=== PATIENT | female | born 1965 | race African-American/Black ===

== ENCOUNTER 2018-10-19 11:55 | Inpatient (IN) | payer MEDICARE, MEDICAID ==
[2018-10-19 11:59] VITALS: BMI 29.7
--- NOTE | 2018-10-19 14:36 | ED PDOC ---
HPI: SOB/CHF/COPD Time Seen by Provider: 10/19/18 12:19 Chief Complaint (Nursing): Shortness Of Breath Chief Complaint (Provider): shortness of breath History Per: Patient History/Exam Limitations: no limitations Onset/Duration Of Symptoms: Days (3-4) Current Symptoms Are (Timing): Still Present Exacerbating Factor(s): Exertion Current Respiratory Medications: See Home Med List Severity: Mild Similar Symptoms Previously: ++ Additional Complaint(s): 53yo female with multiple medical problems including prior PE on Eliquis, chronic pain/fibrolmyalgia, CHF, asthma, presents with dyspnea and she believes episodes of desaturation with exertion. She denies chest pain but notes RLE pain and subjective sense of swelling. States she receives care in [place] currently in [place] to attend to her family member who had surgery. Past Medical History Reviewed: Historical Data, Nursing Documentation, Vital Signs Vital Signs: Last Vital Signs Temp 98.2 F 10/19/18 11:58 Pulse 90 10/19/18 11:58 Resp 16 10/19/18 12:15 BP 150/91 H 10/19/18 11:58 Pulse Ox 100 10/19/18 12:15 Primary Care Provider: DoctorAllen - Medical History PMH: Asthma, Atrial Fibrillation, CHF, Depression, HTN, Hypothyroidism, Sickle Cell Disease Denies: Chronic Kidney Disease - Surgical History Surgical History: Appendectomy Other surgeries: neck surgery - Family History Family History: States: Unknown Family Hx - Living Arrangements Living Arrangements: With Family - Social History Current smoker - smoking cessation education provided: No - Allergies Allergies/Adverse Reactions: Allergies Allergy/AdvReac Type Severity Reaction Status Date / Time Unobtainable Allergy Verified 10/19/18 12:12 Review of Systems ROS Statement: Except As Marked, All Systems Reviewed And Found Negative Constitutional: Negative for: Fever Cardiovascular: Positive for: Palpitations, Paroxysmal Noc. Dyspnea. Negative for: Chest Pain Respiratory: Positive for: Cough, Shortness of Breath, SOB with Exertion Gastrointestinal: Negative for: Nausea, Abdominal Pain Genitourinary Female: Negative for: Dysuria Musculoskeletal: Positive for: Neck Pain, Back Pain, Other (aches and pains) Skin: Negative for: Rash, Lesions Neurological: Negative for: Weakness, Numbness, Headache Psych: Negative for: Suicidal ideation Physical Exam - Reviewed Nursing Documentation Reviewed: Yes Vital Signs Reviewed: Yes - Physical Exam Appears: Positive for: Well, Non-toxic, No Acute Distress Head Exam: Positive for: ATRAUMATIC, NORMAL INSPECTION, NORMOCEPHALIC Skin: Positive for: Normal Color, Warm, DRY Eye Exam: Positive for: EOMI, Normal appearance, PERRL ENT: Positive for: Normal ENT Inspection Neck: Positive for: Normal, Painless ROM Cardiovascular/Chest: Positive for: Regular Rate, Rhythm. Negative for: Tachycardia, Irregularly Irregular Respiratory: Positive for: CNT, Normal Breath Sounds Gastrointestinal/Abdominal: Positive for: Normal Exam, Soft. Negative for: Tenderness Back: Positive for: Normal Inspection Extremity: Positive for: Normal ROM. Negative for: Calf Tenderness, Deformity, Swelling Neurological/Psych: Positive for: Awake, Alert, Normal Tone. Negative for: Motor/Sensory Deficits - Laboratory Results Result Diagrams: 10/19/18 14:42 10/19/18 14:42 - ECG ECG: Positive for: Interpreted By Me ECG Rhythm: Positive for: Normal QRS, Normal ST Segment, Sinus Rhythm Rate: 74 O2 Sat by Pulse Oximetry: 100 Medical Decision Making Medical Decision Making: difficult to obtain IV access, obtained access in L [facility] labs reviewed, no clinically significant abnormalities BNP normal Patient on eliquis with normal HR, she ambulated around ED to test for desaturation with following SPO2 of 96% and HR 88. To check duplex RLE, initiate low dose solumedrol (allergy but she normally takes with benadryl), duoneb and monitor for improvement. Disposition - Clinical Impression Clinical Impression: Dyspnea - Patient ED Disposition Is Patient to be Admitted: Transfer of Care - Disposition Disposition: Transfer of Care Disposition Time: 15:00 Forms: [employer] (Yoruba) Patient Signed Over To: Marnie Reyes Handoff Comments: pending re-eval, US duplex and dispo/
[2018-10-19 14:46] LABS: BASO # 0.1 K/uL (0.0-0.2); EOS # 0.1 K/uL (0.0-0.7); EOS % 0.8 % (0.0-4.0); HEMOGLOBIN 13.6 g/dL (12.0-16.0); LYMPH # 4.5 K/uL (1.0-4.3); LYMPH % 42.1 % (20.0-40.0); MEAN CELL VOLUME 92.3 fl (81.0-99.0); MEAN CORPUSCULAR HEMOGLOBIN 31.8 pg (27.0-31.0); MEAN CORPUSCULAR HGB CONC 34.4 g/dL (33.0-37.0); MEAN PLATELET VOLUME 8.6 fl (7.2-11.7); MONO # 0.7 K/uL (0.0-0.8); MONO % 6.6 % (0.0-10.0); NEUT # 5.3 K/uL (1.8-7.0); NEUT % 49.5 % (50.0-75.0); RBC 4.29 Mil/uL (3.80-5.20); WHITE BLOOD COUNT 10.8 K/uL (4.8-10.8)
[2018-10-19 14:53] LABS: INR 1.1; PROTHROMBIN TIME 12.7 Seconds (9.8-13.1)
[2018-10-19 14:55] LABS: PARTIAL THROMBOPLASTIN TIME 40.5 Seconds (25.6-37.1)
[2018-10-19 15:08] LABS: ALB/GLOB RATIO 1.3 (1.0-2.1); ALBUMIN 4.1 g/dL (3.5-5.0); ALT/SGPT 30 U/L (9-52); AST/SGOT 26 U/L (14-36); BLOOD UREA NITROGEN 8 mg/dl (7-17); CALCIUM 9.3 mg/dL (8.4-10.2); GFR NON-AFRICAN AMERICAN > 60
[2018-10-19 15:10] LABS: B-TYPE NATRIURETIC PEPTIDE 127 pg/ml (0-900)
[2018-10-19] MEDS ORDERED: DiphenhydrAMINE 50 mg/ml Inj IV STA (15:22)
[2018-10-19] MEDS ORDERED: Albuterol-Ipratrop 3 mg / 0.5 (3 ml) UD INH STA (15:22)
--- NOTE | 2018-10-19 15:38 | RAD ---
Date of service: 10/19/2018 HISTORY: chest pain SOB COMPARISON: No prior. TECHNIQUE: Chest PA and lateral views FINDINGS: LUNGS: No active pulmonary disease. PLEURA: No significant pleural effusion identified. No pneumothorax apparent. CARDIOVASCULAR: No aortic atherosclerotic calcification present. Normal cardiac size. No pulmonary vascular congestion. OSSEOUS STRUCTURES: No significant abnormalities. VISUALIZED UPPER ABDOMEN: Normal. OTHER FINDINGS: None. IMPRESSION: No active disease.
[2018-10-19] MEDS ORDERED: DiphenhydrAMINE 50 mg/ml Inj ONE ×2 (15:54→22:50)
[2018-10-19] MEDS ORDERED: Albuterol-Ipratrop 3 mg / 0.5 (3 ml) UD ONE (15:55)
[2018-10-19] MEDS ORDERED: DiphenhydrAMINE 50 mg/ml Inj IVP STA (16:30)
--- NOTE | 2018-10-19 16:39 | CARD ---
APPROVED REPORT Date of service: 10/19/2018 EKG Measurement Heart [id number] <Conclusion> Normal sinus rhythm Left axis deviation Abnormal ECG
[2018-10-19] MEDS ORDERED: Sodium Chloride 0.9% 500 ML IV STA (16:42)
[2018-10-19] MEDS ORDERED: Sodium Chloride 0.9% 1,000 ML IV STA (16:42)
--- NOTE | 2018-10-19 17:11 | ED PDOC ---
- Laboratory Results Result Diagrams: 10/19/18 14:42 10/19/18 14:42 Lab Results: PT 12.7 Seconds (9.8-13.1) 10/19/18 14:42 INR 1.1 10/19/18 14:42 APTT 40.5 Seconds (25.6-37.1) H 10/19/18 14:42 Troponin I < 0.0120 ng/mL (0.00-0.120) 10/19/18 14:42 NT-Pro-B Natriuret Pep 127 pg/ml (0-900) 10/19/18 14:42 Total Bilirubin 0.5 mg/dl (0.2-1.3) 10/19/18 14:42 AST 26 U/L (14-36) 10/19/18 14:42 ALT 30 U/L (9-52) 10/19/18 14:42 Alkaline Phosphatase 117 U/L (38-126) 10/19/18 14:42 Total Protein 7.3 G/DL (6.3-8.2) 10/19/18 14:42 Albumin 4.1 g/dL (3.5-5.0) 10/19/18 14:42 Globulin 3.2 gm/dL (2.2-3.9) 10/19/18 14:42 Albumin/Globulin Ratio 1.3 (1.0-2.1) 10/19/18 14:42 - ECG O2 Sat by Pulse Oximetry: 100 - Progress ED Course And Treament: 445p Rec'd endorsement from Dr Inman. Pt with dypsnea on exertion and h/o asthma, CHF, and PE. On eliquis. Labs wnl. Pt unable to undergo angio CT chest. Given IV benadryl 50mg and IV solumedrol 30mg. Pt also has long standing chronic pain syndromes. Currently pt vomiting and she reports she vomits when her pain is severe. Currently on percocet last filled 120 tablets 09/30. However she reports that despite filling her meds every 2 weeks, she hasn't taken any for he last 2 weeks. She has no respiratory distress. 5p DW Dr Samuels pt's porter sample case who reports pt has true severe anaphylaxis to prednisone. He talked to her earlier and is concerned about decreased peak flows and reports pt is reliable and requests pt be admitted with IV benadryl 5 0mg/solumedrol 30mg combination q12h and epipen at bedside and albuterol neb q3h. DW pt plan of care. 530p Pt continues to vomit. Reglan ordered. Disposition Counseled Patient/Family Regarding: Studies Performed, Diagnosis, Need For Followup - Clinical Impression Clinical Impression: Dyspnea, Asthma exacerbation - POA Present On Arrival: None - Disposition Disposition: Hospitalized as Observation Patient Disposition Time: 18:00 Condition: FAIR
[2018-10-19] MEDS ORDERED: Albuterol 0.083% Inhal Sol (2.5 mg/3 mL) UD IH PRN (17:51)
[2018-10-19] MEDS: DiphenhydrAMINE 50 mg/ml Inj IVP SCH (21:15)
[2018-10-19] MEDS: MethylPREDNISolone 40 mg Vial IVP SCH (21:16)
[2018-10-19] MEDS ORDERED: MethylPREDNISolone 40 mg Vial ONE (22:51)
[2018-10-19] MEDS ORDERED: Albuterol 0.083% Inhal Sol (2.5 mg/3 mL) UD ONE (23:21)
[2018-10-20] MEDS ORDERED: Oxycodone/Acetaminophen 5/325 mg Tab PO ONE (02:39)
[2018-10-20] MEDS ORDERED: Apap-Butalbital-Caffeine 325-50-40mg Tab PO PRN (06:10)
[2018-10-20] MEDS ORDERED: Patient's Own Med (Oxycodone Hcl/Acetaminophen [Percocet 10-325 Mg Tablet] 1 TAB) PO PRN (06:10)
[2018-10-20] MEDS ORDERED: Glucagon Recombinant 1 mg Inj IM PRN (06:14)
[2018-10-20] MEDS ORDERED: Dextrose 50% SYRINGE Inj (50 ml) IV PRN (06:14)
[2018-10-20] MEDS ORDERED: Levothyroxine 112 MCG TAB PO SCH (06:30)
[2018-10-20] MEDS: Insulin Lispro (humaLOG) 100 Units/ml Inj SC SCH ×4 (09:04→21:41)
[2018-10-20] MEDS: Insulin Detemir 100 Units/ml Inj SC SCH ×2 (09:06→21:48)
[2018-10-20] MEDS: Pantoprazole 20 mg EC Tab PO SCH ×3 (09:08→16:39)
[2018-10-20] MEDS: Proshield Plus GEL TOP SCH ×2 (09:10→21:37)
[2018-10-20] MEDS: MethylPREDNISolone 40 mg Vial IVP SCH ×2 (09:15→21:25)
[2018-10-20] MEDS: DiphenhydrAMINE 50 mg/ml Inj IVP SCH ×2 (09:15→21:38)
[2018-10-20] MEDS: Albuterol 0.083% Inhal Sol (2.5 mg/3 mL) UD INH SCH ×5 (09:50→23:53)
--- NOTE | 2018-10-20 10:45 | US ---
Date of service: 10/19/2018 PROCEDURE: Right lower extremity venous duplex Doppler. HISTORY: leg pain hx DVT COMPARISON: None available. TECHNIQUE: Common femoral, superficial femoral, popliteal and posterior tibial veins were evaluated. Flow was assessed with color Doppler, compressibility, assessment of phasic flow and augmentation response. FINDINGS: COMMON FEMORAL VEIN: Unremarkable. SUPERFICIAL FEMORAL VEIN: Unremarkable. POPLITEAL VEIN: Unremarkable. POSTERIOR TIBIAL VEIN: Unremarkable. OTHER FINDINGS: None. IMPRESSION: No evidence of deep venous thrombosis in the right lower extremity. Concordant findings (preliminary report) provided by CASPER PATEL.
[2018-10-21] MEDS: Albuterol 0.083% Inhal Sol (2.5 mg/3 mL) UD INH SCH ×8 (02:59→23:54)
[2018-10-21] MEDS: Oxycodone/Acetaminophen 5/325 mg Tab PO PRN ×2 (03:09→21:06)
[2018-10-21] MEDS: Levothyroxine 112 MCG TAB PO SCH (05:30)
[2018-10-21] MEDS: Insulin Lispro (humaLOG) 100 Units/ml Inj SC SCH ×4 (06:43→21:40)
[2018-10-21] MEDS: DiphenhydrAMINE 50 mg/ml Inj IVP SCH ×2 (09:33→21:15)
[2018-10-21] MEDS: Insulin Detemir 100 Units/ml Inj SC SCH ×2 (09:35→21:43)
[2018-10-21] MEDS: Proshield Plus GEL TOP SCH ×2 (09:36→21:21)
--- NOTE | 2018-10-21 09:36 | PN ---
DATE: 10/21/2018 SUBJECTIVE: The patient seen and examined. Interim events noted. Consults noted and appreciated. The patient remains in progressive care unit with telemetry monitoring. Still complains of asthma not being controlled. No chest pain. No shortness of breath. PHYSICAL EXAMINATION: GENERAL: The patient is in no acute distress. VITAL SIGNS: Stable. HEART: S1, S2, normal, regular. LUNGS: Improving bilateral air exchange although the patient still has some prolonged expiration and rhonchi. No audible wheezes. ABDOMEN: Soft, nontender. No organomegaly. No fluid. Bowel sounds are present and normal. The patient had episodes of nausea and vomiting. is happening since the patient's surgery for gastric sleeve. EXTREMITIES: No edema. No calf swelling. No tenderness. No acute ischemia. CENTRAL NERVOUS SYSTEM: Essentially unchanged. DIAGNOSTIC DATA: Available diagnostic data reviewed. Telemetry monitoring does not reveal significant arrhythmia. ASSESSMENT AND PLAN: Overall, the patient's general medical condition is stable and improving. Plan as ordered. Ricardo Pineda MD
[2018-10-21] MEDS: Pantoprazole 40 mg EC Tab PO SCH (09:37)
[2018-10-21] MEDS: MethylPREDNISolone 40 mg Vial IVP SCH ×2 (11:34→21:14)
[2018-10-22 01:47] VITALS: RESP 18
[2018-10-22] MEDS: Albuterol 0.083% Inhal Sol (2.5 mg/3 mL) UD INH SCH ×4 (04:12→15:29)
[2018-10-22 05:52] LABS: HEMOGLOBIN 12.4 g/dL (12.0-16.0); MEAN CELL VOLUME 92.1 fl (81.0-99.0); MEAN CORPUSCULAR HEMOGLOBIN 31.6 pg (27.0-31.0); MEAN CORPUSCULAR HGB CONC 34.3 g/dL (33.0-37.0); RBC 3.94 Mil/uL (3.80-5.20); RED CELL DISTRIBUTION WIDTH 13.1 % (11.5-14.5); WHITE BLOOD COUNT 17.6 K/uL (4.8-10.8)
[2018-10-22 06:09] LABS: ALB/GLOB RATIO 1.3 (1.0-2.1); ALBUMIN 4.1 g/dL (3.5-5.0); ALT/SGPT 24 U/L (9-52); AST/SGOT 21 U/L (14-36); BLOOD UREA NITROGEN 13 mg/dl (7-17); CALCIUM 8.9 mg/dL (8.4-10.2); GFR NON-AFRICAN AMERICAN > 60
[2018-10-22] MEDS: Insulin Lispro (humaLOG) 100 Units/ml Inj SC SCH ×3 (06:44→17:22)
--- NOTE | 2018-10-22 08:54 | HP ---
CHIEF COMPLAINT: Shortness of breath. HISTORY OF PRESENT ILLNESS: This is a 53-year-old female with multiple medical problems including severe bronchial asthma, CHF, asthma, fibromyalgia, chronic pain, history of pulmonary embolism on multiple medications causing shortness of breath. The patient was brought to the emergency room and was admitted for further management. REVIEW OF SYSTEMS: Positive for shortness of breath and chronic pain. Review of systems otherwise is negative for headache, dizziness, syncope, loss of consciousness, chest pain, nausea, vomiting, diarrhea, constipation, any new joint or extremity pain. Review of systems of all other organ system is unremarkable. PAST MEDICAL HISTORY: Significant for severe bronchial asthma, atrial fibrillation, congestive heart failure, history of pulmonary embolism, hypertension, hypothyroidism, sickle cell anemia, history of thyroid cancer with 3 thyroid surgeries. PAST SURGICAL HISTORY: Significant for thyroid surgery and appendectomy. PERSONAL HISTORY: The patient is currently nonsmoker, nondrinker. No substance abuse. MEDICATIONS: The patient is on multiple medications which is as per reconciliation sheet, which was reviewed and ordered. ALLERGIES: THE PATIENT HAS MULTIPLE ALLERGIES INCLUDING ALLERGY TO STEROIDS. PHYSICAL EXAMINATION: GENERAL: Well-built, well-nourished morbidly obese 53-year-old female, in no acute distress. VITAL SIGNS: Temperature afebrile, pulse 99, respiration 18, blood pressure 136/85. HEENT: Pupils reacting to light. No JVD. No thyromegaly. No lymphadenopathy. No nystagmus. Normocephalic, atraumatic skull. HEART: S1, S2 normal, regular. No significant murmur, gallop, or rub is heard. LUNGS: Prolonged expiration and some rhonchi that is much improved compared to the emergency room physician's description. ABDOMEN: Soft, nontender. No organomegaly. No fluid. Bowel sounds are plus and normal. EXTREMITIES: No edema. No calf swelling. No tenderness. No acute ischemia. CENTRAL NERVOUS SYSTEM: Essentially unchanged and there is no sign of any acute gross focal motor or sensory neurological deficit. DIAGNOSTIC DATA: Available diagnostic data reviewed. Telemetry monitoring does not reveal significant arrhythmias. WBC 10.8, hemoglobin 13.6, hematocrit 39.6, platelets 310. Sodium 140, potassium 3.8, chloride 104, bicarb 27, BUN 13, creatinine 0.6. Accu-Cheks are 271, 264, and 116. SMA-12 is unremarkable. Chest x-ray is clear. EKG does not reveal any acute ST-T changes. Doppler studies of extremities negative for DVT. ADMITTING IMPRESSION: Acute exacerbation of bronchial asthma, history of pulmonary embolism, thyroid cancer, hypothyroidism, morbid obesity. PLAN: As ordered. Case and plan discussed with the patient. Ricardo Pineda MD
[2018-10-22] MEDS: DiphenhydrAMINE 50 mg/ml Inj IVP SCH (10:29)
[2018-10-22] MEDS: Insulin Detemir 100 Units/ml Inj SC SCH (10:39)
[2018-10-22] MEDS: Pantoprazole 40 mg EC Tab PO SCH (10:40)
[2018-10-22] MEDS: Proshield Plus GEL TOP SCH (10:41)
[2018-10-22] MEDS: MethylPREDNISolone 40 mg Vial IVP SCH (10:54)
[2018-10-22] MEDS ORDERED: Bisacodyl 5mg EC Tab PO SCH (11:45)
[2018-10-22] MEDS ORDERED: POLYETHYLENE GLYCOL 3350 17 GM/Dose PACKET PO SCH (11:45)
--- NOTE | 2018-10-22 12:33 | PN ---
DATE: 10/22/2018 SUBJECTIVE: The patient seen and examined. Interim events noted. The patient remains in progressive care unit with telemetry monitoring, feels much better. Denies any specific complaint. No chest pain or shortness of breath. Breathing improved remarkably. PHYSICAL EXAMINATION: GENERAL: The patient is in no acute distress. VITAL SIGNS: Stable. HEART: S1 and S2, normal and regular. LUNGS: Good bilateral air exchange. No rhonchi, no wheezing, no rales. ABDOMEN: Soft, nontender, no organomegaly. No fluid. Bowel sounds are present and normal. EXTREMITIES: No edema, no calf swelling, no tenderness, no acute ischemia. CENTRAL NERVOUS SYSTEM: Exam is essentially unchanged. DIAGNOSTIC DATA: Available diagnostic data reviewed. Telemetry monitoring does not show significant arrhythmias. Overall, the patient's general medical condition is stable and improved. Plan as ordered. Ricardo Pineda MD
[2018-10-22] MEDS: Levothyroxine 112 MCG TAB PO SCH (12:43)
[2018-10-22 16:05] VITALS: BP 101/69; PULSE 85; TEMP 98.5; O2SAT 95
--- NOTE | 2018-10-24 05:43 | CON ---
DATE: 10/22/2018 REFERRING PHYSICIAN: Ricardo Pineda MD REASON FOR CONSULTATION: Nausea and vomiting. HISTORY OF PRESENT ILLNESS: This is a very zayda 53-year-old female with history of multiple medical problems including severe bronchial asthma, CHF, asthma, fibromyalgia, chronic pain, and PE and on multiple medications causing shortness of breath. The patient has nausea and vomiting . The patient feels better after the nebulizer treatment. The coughing has improved and has tolerated diet well. No apparent distress. PAST MEDICAL HISTORY: As above. SURGICAL HISTORY: As above. MEDICATIONS: Have been reviewed. REVIEW OF SYSTEMS: All other systems have been reviewed and negative apart from the HPI. PHYSICAL EXAMINATION: VITAL SIGNS: Here in the hospital are grossly unremarkable. GENERAL: A pleasant elderly appearing female, lying in bed comfortable, in no apparent distress. HEENT: Head: Normocephalic and atraumatic. Eyes: Pupils are equally reactive to light bilaterally. No conjunctival pallor or icterus. NECK: Supple. Normal range of motion. No lymphadenopathy appreciated. LUNGS: Coarse breath sounds bilaterally. HEART: S1 and S2. Regular rate and rhythm. No murmurs appreciated. ABDOMEN: Soft, nontender. Bowel sounds present. No rebound. No guarding. RECTAL: Deferred. EXTREMITIES: Pulses felt bilaterally. SKIN: Warm, dry, and intact. NEUROLOGIC: Alert and oriented x3. LABORATORY DATA: Labs and radiology have been reviewed. Labs reveal WBC is . LFTs are essentially unremarkable. ASSESSMENT AND PLAN: This is a 53-year-old female with asthma, nausea and vomiting. I suspect this is secondary to medication and cough. From a gastrointestinal stand point, we will plan for endoscopy at some point. Thank you for the consultation. Jovani Boyle MD/ PhD cc: Ricardo Pineda MD
--- NOTE | 2018-10-24 11:52 | PQF ---
PROVIDER RESPONSE TEXT: Unknown, admitted with asthma exacerbation REVIEWER QUERY TEXT: Asthma Specificity and Type Asthma is documented in the Medical Record. Please specify the type if know: Such as: -- Mild intermittent -- Mild persistent -- Moderate persistent -- Severe persistent -- Other, please specify ER: Hx./Exam; Current Respiratory Medications: See Home Med List ROS : -Respiratory: Positive for: Cough, Shortness of Breath, SOB with Exertion 5p DW Dr Samuels pt's fitness worker who reports pt has true severe anaphylaxis to prednisone.He talked to her earlier and is concerned about decreased peak flows and reports pt is reliable and requests p t be admitted with IV benadryl 50mg/solumedrol 30mg combination q12h and epipen at bedside and albute rol neb q3h Clinical Impression: Dyspnea, Asthma exacerbation H and P: Admitting Impression: Acute exacerbation of bronchial asthma, history of pulmonary embolism , thyroid cancer, hypothyroidism, morbid obesity. The patient's Clinical Indicators include: -- Query created by: Tanya Hernandez on 10/22/2018 10:32 AM Electronically signed by: Ricardo Pineda 10/24/2018 11:48 AM
--- NOTE | 2018-10-24 11:52 | PQF ---
PROVIDER RESPONSE TEXT: Hx chronic afib REVIEWER QUERY TEXT: Atrial Fibrillation Type Atrial fibrillation is documented in the Medical Record. Please specify the type if known: i.e -- Chronic -- Paroxysmal -- Permanent -- Persistent -- Other, please specify ER note includes; Pt with dyspnea on exertion and h/o asthma, CHF, and PE. On eliquis. H and P includes: hx. A-Fib The patient's Clinical Indicators include: -- Query created by: Tanya Hernandez on 10/22/2018 10:36 AM Electronically signed by: Ricardo Pineda 10/24/2018 11:48 AM
--- NOTE | 2018-10-24 12:51 | PQF ---
PROVIDER RESPONSE TEXT: BMI 29.7 overweight REVIEWER QUERY TEXT: Conflicting Documentation Clarification 2 (two) queries as follows: 1. Morbid Obesity versus Obesity? H and P: Impression includes: Morbid Obesity --- 10/22/18@10:18--RD consult includes: BMI 29.7: Overweight: provided verbal and written education on moderate consistent CHO heart healthy diet: glucerna shake 8 ozs. 1 per day 2. Please document the BMI in your next progress note. -- Other, please specify The patient's Clinical Indicators include: -- Query created by: Tanya Hernandez on 10/22/2018 12:08 PM Electronically signed by: Ricardo Pineda 10/24/2018 12:47 PM
--- NOTE | 2018-10-24 12:51 | PQF ---
PROVIDER RESPONSE TEXT: Chronic diastolic CHF REVIEWER QUERY TEXT: Heart Failure Acuity and Type Congestive Heart Failure is documented in the Medical Record. Please document the type and acuity (in cludes probable or suspected) versus No CHF: history only and not a chronic condition Type: -- Combined systolic and diastolic (heart failure with reduced ejection fraction and diastolic) dysfu nction -- Diastolic (HFpEF) -- Systolic (HFrEF) -- Left heart failure -- Right heart failure -- Right heart failure due to left heart failure -- High output failure -- End stage heart failure -- Other, please specify Acuity: -- Acute -- Chronic -- Acute on chronic -- Other, please specify H and P: includes: hx. CHF -Bumex 2 mg PO Daily The patient's Clinical Indicators include: -- Query created by: Tanya Hernandez on 10/22/2018 10:44 AM Electronically signed by: Ricardo Pineda 10/24/2018 12:47 PM
== END 2018-10-22 17:40 | disposition home health service (06) | DRG 202 ==
LOC: H.ER 11:55 → H.ERHOLD 17:48 → OBSVTOIN 17:48 → H.TEL 10-20 01:00
PROVIDERS: ADMIT Internal Medicine; ATTEND Internal Medicine
PROC: 3E0F7GC Introduction of Other Therapeutic Substance into Respiratory Tract, Via Natural or Artificial Opening (ICD-10-PCS; principal; 2018-10-20)
DX: J45.901 Unspecified asthma with (acute) exacerbation (principal); I50.32 Chronic diastolic (congestive) heart failure; D57.1 Sickle-cell disease without crisis; I11.0 Hypertensive heart disease with heart failure; M79.7 Fibromyalgia; Z79.01 Long term (current) use of anticoagulants; Z85.850 Personal history of malignant neoplasm of thyroid; Z86.711 Personal history of pulmonary embolism; F32.9 Major depressive disorder, single episode, unspecified; E03.9 Hypothyroidism, unspecified; G89.29 Other chronic pain; I48.2 Chronic atrial fibrillation; Z68.29 Body mass index [BMI] 29.0-29.9, adult; E66.3 Overweight